=== PATIENT | female | born 1930 | race Caucasian/White ===

== ENCOUNTER 2017-02-27 14:27 | Observation (INO) | payer MEDICARE ==
[~2017-02-27] VITALS: Ht 162.6 cm; Wt 70.0 kg
[2017-02-27 14:28] VITALS: BP 113/53; PULSE 84; RESP 16; TEMP 98.2; O2SAT 97
[2017-02-27 14:53] VITALS: BP 86/54; PULSE 86; RESP 18; TEMP 98.6; O2SAT 98
[2017-02-27 15:00] VITALS: BP 86/50; PULSE 87; RESP 16; O2SAT 99
[2017-02-27 15:30] VITALS: BP 110/51; PULSE 68; RESP 16; O2SAT 99
[2017-02-27] MEDS ORDERED: SODIUM CHLORIDE 0.9% FLUSH 10 ML FLUSH IVF PRN (15:30)
[2017-02-27] MEDS ORDERED: SODIUM CHLOR 0.9% 1000 ML INJ 1,000 ML IV ONE ×2 (15:30)
[2017-02-27 15:34] VITALS: O2SAT 99
--- NOTE | 2017-02-27 15:46 | RADRPT ---
EXAM DATE/TIME: 02/27/2017 15:43 [facility] COMPARISON: No previous studies available for comparison. INDICATIONS : Weakness, possible stroke. MEDICAL HISTORY : None. SURGICAL HISTORY : None. ENCOUNTER: Initial ACUITY: 1 day PAIN SCORE: 0/10 LOCATION: Bilateral chest FINDINGS: A single view of the chest demonstrates the lungs to be symmetrically aerated without evidence of mas s, infiltrate or effusion. The cardiomediastinal contours are unremarkable. Osseous structures are intact. CONCLUSION: No acute disease. Ricky Moeller MD on February 27, 2017 at 15:44 Board Certified Radiologist. This report was verified electronically.
--- NOTE | 2017-02-27 16:02 | RADRPT ---
EXAM DATE/TIME: 02/27/2017 15:46 [facility] COMPARISON: No previous studies available for comparison. INDICATIONS : Patient with weakness, facial droop. RADIATION DOSE: 33.59 CTDIvol (mGy) MEDICAL HISTORY : Seizures. Hypertension. SURGICAL HISTORY : Hysterectomy. ENCOUNTER: Initial ACUITY: 1 day PAIN SCALE: 0/10 LOCATION: cranial TECHNIQUE: Multiple contiguous axial images were obtained of the head. Using automated exposure control and adj ustment of the mA and/or kV according to patient size, radiation dose was kept as low as reasonably a chievable to obtain optimal diagnostic quality images. DICOM format image data is available electro nically for review and comparison. FINDINGS: CEREBRUM: There is a low attenuation throughout the white matter. The ventricles are normal for age. No eviden ce of midline shift, mass lesion, hemorrhage or acute infarction. No extra-axial fluid collections a re seen. POSTERIOR FOSSA: The cerebellum and brainstem are intact. The 4th ventricle is midline. The cerebellopontine angle i s unremarkable. EXTRACRANIAL: The visualized portion of the orbits is intact. SKULL: The calvaria is intact. No evidence of skull fracture. CONCLUSION: No acute intracranial disease. Nonspecific white matter changes. Ricky Moeller MD on February 27, 2017 at 16:00 Board Certified Radiologist. This report was verified electronically.
[2017-02-27 16:19] LABS: AUTOMATED NEUTROPHIL # 3.5 TH/MM3 (1.8-7.7); BASOPHIL # 0.1 TH/MM3 (0-0.2); EOSINOPHIL # 0.1 TH/MM3 (0-0.4); EOSINOPHIL % 1.6 % (0.0-4.0); HEMATOCRIT 41.2 % (35.0-46.0); HEMO FLAGS DIFF FINAL; LYMPH % 33.4 % (9.0-44.0); LYMPHOCYTE # 2.1 TH/MM3 (1.0-4.8); MEAN CELL VOLUME 88.5 FL (80.0-100.0); MEAN CORPUSCULAR HEMOGLOBIN 30.2 PG (27.0-34.0); MEAN CORPUSCULAR HGB CONC 34.2 % (32.0-36.0); MONO % 8.8 % (0.0-8.0); NEUT % 55.2 % (16.0-70.0); PLATELET COUNT 204 TH/MM3 (150-450); RED BLOOD COUNT 4.65 MIL/MM3 (4.00-5.30); RED CELL DISTRIBUTION WIDTH 12.9 % (11.6-17.2); WHITE BLOOD COUNT 6.4 TH/MM3 (4.0-11.0)
[2017-02-27 16:26] LABS: INTERNATIONAL NORMALIZED RATIO 1.1 RATIO; PROTHROMBIN TIME - PATIENT 11.3 SEC (9.8-11.6)
[2017-02-27 16:46] LABS: ANION GAP 8 MEQ/L (5-15); BICARBONATE 27.1 MEQ/L (21.0-32.0); BLOOD UREA NITROGEN 23 MG/DL (7-18); CHLORIDE 105 MEQ/L (98-107); GLOMERULAR FILTRATION RATE 31 ML/MIN (>89); POTASSIUM 3.8 MEQ/L (3.5-5.1); SODIUM (NA) 140 MEQ/L (136-145)
[2017-02-27 16:49] LABS: CREATINE KINASE 89 U/L (26-192)
--- NOTE | 2017-02-27 17:22 | PD ---
HPI Chief Complaint: Neuro Symptoms/ Deficits Time Seen by Provider: 14:42 Travel History International Travel<30 days: No Contact w/Intl Traveler<30days: No Traveled to known affect area: No History of Present Illness HPI 86-year-old female came to the emergency room brought by her daughter with history of syncopal episode along with possible seizure. Patient was in the back of her daughter's car and daughter was driving. She heard the patient grunting and when she turned back she saw that she was unresponsive with her dentures out of her mouth and drooling. Patient has history of seizure disorder apparently and daughter thinks that she may have had a seizure. She brought her in to be evaluated. Currently patient is awake and answering questions appropriately. Says she feels okay. However her vital signs were significant of hypotension. No history of chest pain, headache or any other pains. [facility] Past Medical History Narrative Medical List of her past medical, surgical, social and family history is reviewed from the nursing note. Cardiovascular Problems: Yes (HTN) High Cholesterol: Yes Hypertension: Yes Seizures: Yes Tetanus Vaccination: Unknown Influenza Vaccination: Yes ?: Not Past Surgical History Hysterectomy: Yes Social History Alcohol Use: Yes (BEER OCCASIONALLY ) Tobacco Use: No Substance Use: No Allergies-Medications (Allergen,Severity, Reaction): Coded Allergies: No Known Allergies (Unverified , 02/27/17) Comments No known drug allergies Reported Meds & Prescriptions Reported Meds & Active Scripts Active Narrative Medication Awaiting for the nurse to update the vital signs Review of Systems Except as stated in HPI: all other systems reviewed are Neg Neurologic: Positive: Syncope, Seizures Physical Exam Narrative GENERAL: Awake, alert, elderly, mild distress SKIN: Focused skin assessment warm/dry. HEAD: Atraumatic. Normocephalic. EYES: Pupils equal and round. No scleral icterus. No injection or drainage. ENT: No nasal bleeding or discharge. Mucous membranes pink and moist. NECK: Trachea midline. No JVD. CARDIOVASCULAR: Regular rate and rhythm. No murmur appreciated. RESPIRATORY: No accessory muscle use. Clear to auscultation. Breath sounds equal bilaterally. GASTROINTESTINAL: Abdomen soft, non-tender, nondistended. Hepatic and splenic margins not palpable. MUSCULOSKELETAL: No obvious deformities. No clubbing. No cyanosis. No edema. NEUROLOGICAL: Awake and alert. No obvious cranial nerve deficits. Motor grossly within normal limits. Normal speech. NIH stroke score of 0 PSYCHIATRIC: Appropriate mood and affect; insight and judgment normal. Data Data Last Documented VS Vital Signs Date Time Temp Pulse Resp B/P (MAP) Pulse Ox O2 Delivery O2 Flow Rate FiO2 02/27/17 15:34 99 Room Air 02/27/17 15:30 68 16 02/27/17 14:53 98.6 Orders Orders Electrocardiogram (02/27/17:29) Prothrombin Time / Inr (Pt) (02/27/17 15:29) Complete Blood Count With Diff (02/27/17:29) Basic Metabolic Panel (Bmp) (02/27/17 15:29) Creatine Kinase (Cpk) (02/27/17:29) Troponin I (02/27/17:) Ct Brain W/O Iv Contrast(Rout) (02/27/17 15:29) Chest, Single Ap (02/27/17 15:29) Ecg Monitoring (02/27/17:29) Iv Access Insert/Monitor (02/27/17:29) Oximetry (02/27/17 15:29) Sodium Chloride 0.9% Flush (Ns Flush) (02/27/17 15:30) Sodium Chlor 0.9% 1000 Ml Inj (Ns 1000 M (02/27/17 15:30) Sodium Chlor 0.9% 1000 Ml Inj (Ns 1000 M (02/27/17 15:30) Admit Order (Ed Use Only) (02/27/17 17:23) Labs Laboratory Tests Test 02/27/17 15:45 White Blood Count 6.4 TH/MM3 Red Blood Count 4.65 MIL/MM3 Hemoglobin 14.1 GM/DL Hematocrit 41.2 % Mean Corpuscular Volume 88.5 FL Mean Corpuscular Hemoglobin 30.2 PG Mean Corpuscular Hemoglobin Concent 34.2 % Red Cell Distribution Width 12.9 % Platelet Count 204 TH/MM3 Mean Platelet Volume 7.8 FL Neutrophils (%) (Auto) 55.2 % Lymphocytes (%) (Auto) 33.4 % Monocytes (%) (Auto) 8.8 % Eosinophils (%) (Auto) 1.6 % Basophils (%) (Auto) 1.0 % Neutrophils # (Auto) 3.5 TH/MM3 Lymphocytes # (Auto) 2.1 TH/MM3 Monocytes # (Auto) 0.6 TH/MM3 Eosinophils # (Auto) 0.1 TH/MM3 Basophils # (Auto) 0.1 TH/MM3 CBC Comment DIFF FINAL Differential Comment Prothrombin Time 11.3 SEC Prothromb Time International Ratio 1.1 RATIO Blood Urea Nitrogen 23 MG/DL Creatinine 1.60 MG/DL Random Glucose 167 MG/DL Calcium Level 8.7 MG/DL Sodium Level 140 MEQ/L Potassium Level 3.8 MEQ/L Chloride Level 105 MEQ/L Carbon Dioxide Level 27.1 MEQ/L Anion Gap 8 MEQ/L Estimat Glomerular Filtration Rate 31 ML/MIN Total Creatine Kinase 89 U/L Troponin I LESS THAN 0.02 NG/ML MDM Medical Decision Making Medical Screen Exam Complete: Yes Emergency Medical Condition: Yes Medical Record Reviewed: Yes Interpretation(s) Twelve-lead EKG was reviewed by me. Normal sinus rhythm, normal axis, nonspecific ST-T wave changes. Heart rate of 68 bpm. Differential Diagnosis Arrhythmia, seizure disorder, intracranial bleed, tumor Narrative Course 5:21 PM blood test results are back and patient is slightly dehydrated. She was given 2 L of IV fluid bolus initially when she came in. Currently her blood pressure has stabilized. Rest of the blood test results are within normal limits. Head CT is negative. I would like to admit this patient at least for observation and the family has been notified. Patient and her daughter is okay with this plan. Procedures EKG Prior to Arrival: No Diagnosis Primary Impression: Syncope Qualified Codes: R55 - Syncope and collapse Additional Impressions: Dehydration Hypotension Qualified Codes: I95.9 - Hypotension, unspecified Admitting Information Admitting Physician Requests: Observation Scripts Walker Rolling/GetGo (Walker Rolling/GetGo) 1 Mis Mis EA .ROUTE DIRECTED for instability/seizure, #1 Prov: Naun Pryor MD 03/01/17 Aspirin (Aspirin) 81 Mg Chew 81 MG CHEW DAILY for TIA prophylaxis, #30 TAB 0 Refills Prov: Naun Pryor MD 03/01/17 Levetiracetam (Keppra) 250 Mg Tab 750 MG PO Q12HR for seizure, #60 TAB Prov: Naun Pryor MD 03/01/17 Angel Saul MD Feb 27, 2017 17:22
[2017-02-27] MEDS ORDERED: SODIUM CHLORIDE 0.9% FLUSH 10 ML FLUSH IV FLUSH PRN ×2 (17:30→19:45)
[2017-02-27] MEDS ORDERED: DEXTROSE 50% IN WATER 50 ML VIAL(D50) IV PUSH PRN (19:45)
[2017-02-27] MEDS ORDERED: GLUCAGON 1 MG/ML VIAL OTHER PRN (19:45)
[2017-02-27] MEDS ORDERED: ASPIRIN 81 MG CHEW TAB CHEW ONE (19:45)
--- NOTE | 2017-02-27 19:58 | HHI.HP ---
[facility] Service [facility] Primary Care Physician Glenda Alfredo, formerly [facility] Admission Diagnosis syncope, hypotension Diagnoses: Travel History International Travel<30 Days: No Contact w/Intl Traveler <30 Da: No Traveled to Known Affected Are: No History of Present Illness 86-year-old female with a past medical history for seizure disorder currently on Keppra, hypertension and dementia presents to the emergency department after an episode of TIA versus seizure. The patient was riding in the car with her daughter who witnessed her have left-sided facial droop and extension of her left leg while being nonresponsive. The episode itself was short-lived and the patient's daughter reports the facial droop resolved after approximately 15 minutes. The patient has no memory of the event. Per the patient's daughter, this was different than her previous witnessed seizure. Head CT showed no acute intracranial disease. The patient's symptoms have all completely resolved at this time. Review of Systems Denies fever or chills Denies blurry vision, otorrhea, rhinorrhea Denies sore throat and cough No chest pain, palpitations, shortness of breath No abdominal pain Denies constipation/diarrhea/nausea/vomiting Denies muscle pain/weakness No rashes Past Family Social History Past Medical History Seizure disorder Hypertension Dementia Past Surgical History Cholecystectomy Hysterectomy Varicose vein surgery Reported Medications Unknown at this time Allergies: Coded Allergies: No Known Allergies (Unverified , 02/27/17) Family History Mother with CAD Social History Denies alcohol, tobacco and illicit drugs Physical Exam Vital Signs Vital Signs Date Time Temp Pulse Resp B/P (MAP) Pulse Ox O2 Delivery O2 Flow Rate FiO2 02/27/17 15:34 99 Room Air 02/27/17 15:30 68 16 110/51 (70) 99 Room Air 02/27/17 15:00 87 16 86/50 (62) 99 Room Air 02/27/17 14:59 86 18 98 Room Air 02/27/17 14:53 98.6 86 18 86/54 (65) 98 02/27/17 14:28 98.2 84 16 113/53 (73) 97 Physical Exam GENERAL: female sitting up in bed SKIN: No rashes, ecchymoses or lesions. Cool and dry. HEAD: Atraumatic. Normocephalic. No temporal or scalp tenderness. EYES: Pupils equal round and reactive. Extraocular motions intact. No scleral icterus. No injection or drainage. ENT: Nose without bleeding, purulent drainage or septal hematoma. Throat without erythema, tonsillar hypertrophy or exudate. Uvula midline. Airway patent. NECK: Trachea midline. No JVD or lymphadenopathy. Supple, nontender, no meningeal signs. CARDIOVASCULAR: Regular rate and rhythm without murmurs, gallops, or rubs. RESPIRATORY: Clear to auscultation. Breath sounds equal bilaterally. No wheezes , rales, or rhonchi. GASTROINTESTINAL: Abdomen soft, non-tender, nondistended. No hepato-splenomegaly , or palpable masses. No guarding. MUSCULOSKELETAL: Extremities without clubbing, cyanosis, or edema. No joint tenderness, effusion, or edema noted. No calf tenderness. Negative Homans sign bilaterally. NEUROLOGICAL: Awake and alert. Cranial nerves II through XII intact. Motor and sensory within normal limits. Five out of 5 muscle strength in all muscle groups. Normal speech. Laboratory Laboratory Tests Test 02/27/17 15:45 White Blood Count 6.4 Red Blood Count 4.65 Hemoglobin 14.1 Hematocrit 41.2 Mean Corpuscular Volume 88.5 Mean Corpuscular Hemoglobin 30.2 Mean Corpuscular Hemoglobin Concent 34.2 Red Cell Distribution Width 12.9 Platelet Count 204 Mean Platelet Volume 7.8 Neutrophils (%) (Auto) 55.2 Lymphocytes (%) (Auto) 33.4 Monocytes (%) (Auto) 8.8 Eosinophils (%) (Auto) 1.6 Basophils (%) (Auto) 1.0 Neutrophils # (Auto) 3.5 Lymphocytes # (Auto) 2.1 Monocytes # (Auto) 0.6 Eosinophils # (Auto) 0.1 Basophils # (Auto) 0.1 CBC Comment DIFF FINAL Differential Comment Prothrombin Time 11.3 Prothromb Time International Ratio 1.1 Blood Urea Nitrogen 23 Creatinine 1.60 Random Glucose 167 Calcium Level 8.7 Sodium Level 140 Potassium Level 3.8 Chloride Level 105 Carbon Dioxide Level 27.1 Anion Gap 8 Estimat Glomerular Filtration Rate 31 Total Creatine Kinase 89 Troponin I LESS THAN 0.02 Result Diagram: 02/27/17 1545 02/27/17 1545 Caprini VTE Risk Assessment Caprini VTE Risk Assessment: Mod/High Risk (score >= 2) Caprini Risk Assessment Model Point Value = 1 Point Value = 2 Point Value = 3 Point Value = 5 Age 41-60 Minor surgery BMI > 25 kg/m2 Swollen legs Varicose veins or History of unexplained or recurrent spontaneous Oral contraceptives or hormone replacement Sepsis (< 1 month) Serious lung disease, including pneumonia (< 1 month) Abnormal pulmonary function Acute myocardial infarction Congestive heart failure (< 1 month) History of inflammatory bowel disease Medical patient at bed rest Age 61-74 Arthroscopic surgery Major open surgery (> 45 min) Laparoscopic surgery (> 45 min) Malignancy Confined to bed (> 72 hours) Immobilizing plaster cast Central venous access Age >= 75 History of VTE Family history of VTE Factor V Leiden Prothrombin [id number] Lupus anticoagulant Anticardiolipin antibodies Elevated serum homocysteine Heparin-induced thrombocytopenia Other congenital or acquired thrombophilia Stroke (< 1 month) Elective arthroplasty Hip, pelvis, or leg fracture Acute spinal cord injury (< 1 month) Prophylaxis Regimen Total Risk Factor Score Risk Level Prophylaxis Regimen 0-1 Low Early ambulation 2 Moderate Order ONE of the following: *Sequential Compression Device (SCD) *Heparin 5000 units SQ BID 3-4 Higher Order ONE of the following medications: *Heparin 5000 units SQ TID *Enoxaparin/Lovenox 40 mg SQ daily (WT < 150 kg, CrCl > 30 mL/min) *Enoxaparin/Lovenox 30 mg SQ daily (WT < 150 kg, CrCl > 10-29 mL/min) *Enoxaparin/Lovenox 30 mg SQ BID (WT < 150 kg, CrCl > 30 mL/min) AND/OR *Sequential Compression Device (SCD) 5 or more Highest Order ONE of the following medications: *Heparin 5000 units SQ TID (Preferred with Epidurals) *Enoxaparin/Lovenox 40 mg SQ daily (WT < 150 kg, CrCl > 30 mL/min) *Enoxaparin/Lovenox 30 mg SQ daily (WT < 150 kg, CrCl > 10-29 mL/min) *Enoxaparin/Lovenox 30 mg SQ BID (WT < 150 kg, CrCl > 30 mL/min) AND *Sequential Compression Device (SCD) Assessment and Plan Assessment and Plan Assessment/plan: 1. TIA versus seizure Patient with known seizure disorder, currently on Keppra. Keppra level pending EEG pending TIA workup pending including MRI/MRA brain, carotid ultrasound, echo Neurology consulted, appreciate recommendations 2. ROGER Patient's creatinine 1.60, baseline unknown IV fluid hydration Monitor renal function Avoid nephrotoxic agents 3. Seizure disorder/hypertension/dementia Patient's daughter will bring in a list of her home medications Medications reconciled, continue home meds FEN Heart healthy diet after bedside swallow evaluation NS 70 cc/hour Electrolytes: Monitor and replete when necessary Heparin Adriane Paulino MD Feb 27, 2017 19:58
[2017-02-27] MEDS: INSULIN ASPART SUPPLEMENTAL SCALE SQ SCH (21:00)
[2017-02-27] MEDS: SODIUM CHLORIDE 0.9% FLUSH 10 ML FLUSH IV FLUSH SCH (22:04)
[2017-02-27] MEDS: SODIUM CHLOR 0.9% 1000 ML INJ 1,000 ML IV SCH (22:04)
[2017-02-27] MEDS: HEPARIN SODIUM - SQ 10,000 UNITS/ML VIAL SQ SCH (22:05)
[2017-02-28] VITALS (10 sets, daily range): BP systolic 130–183; BP diastolic 68–84; PULSE 51–79; RESP 18–24; TEMP 96.6–98.7; O2SAT 93–97
[2017-02-28 05:34] LABS: BASOPHIL # 0.1 TH/MM3 (0-0.2); BASOPHIL % 0.8 % (0.0-2.0); EOSINOPHIL # 0.2 TH/MM3 (0-0.4); EOSINOPHIL % 2.2 % (0.0-4.0); HEMATOCRIT 39.1 % (35.0-46.0); HEMO FLAGS DIFF FINAL; LYMPH % 48.3 % (9.0-44.0); LYMPHOCYTE # 3.5 TH/MM3 (1.0-4.8); MEAN CELL VOLUME 88.8 FL (80.0-100.0); MEAN CORPUSCULAR HEMOGLOBIN 30.3 PG (27.0-34.0); MEAN CORPUSCULAR HGB CONC 34.2 % (32.0-36.0); MONO % 7.4 % (0.0-8.0); NEUT % 41.3 % (16.0-70.0); PLATELET COUNT 181 TH/MM3 (150-450); RED BLOOD COUNT 4.41 MIL/MM3 (4.00-5.30); RED CELL DISTRIBUTION WIDTH 13.3 % (11.6-17.2); WHITE BLOOD COUNT 7.2 TH/MM3 (4.0-11.0)
[2017-02-28 06:05] LABS: BICARBONATE 26.5 MEQ/L (21.0-32.0); POTASSIUM 3.6 MEQ/L (3.5-5.1)
[2017-02-28 06:09] LABS: HDL CHOLESTEROL 70.8 MG/DL (40.0-60.0)
[2017-02-28] MEDS: INSULIN ASPART SUPPLEMENTAL SCALE SQ SCH ×4 (08:00→21:00)
[2017-02-28] MEDS: SODIUM CHLORIDE 0.9% FLUSH 10 ML FLUSH IV FLUSH SCH ×2 (10:41→21:50)
[2017-02-28] MEDS: SODIUM CHLOR 0.9% 1000 ML INJ 1,000 ML IV SCH (10:41)
[2017-02-28] MEDS: HEPARIN SODIUM - SQ 10,000 UNITS/ML VIAL SQ SCH ×2 (10:42→21:50)
--- NOTE | 2017-02-28 10:48 | RADRPT ---
EXAM DATE/TIME: 02/28/2017 09:20 [facility] COMPARISON: No previous studies available for comparison. INDICATIONS : Patient with weakness, facial droop. MEDICAL HISTORY : Seizures. Hypertension. SURGICAL HISTORY : Cholecystectomy. Hysterectomy. ENCOUNTER: Subsequent ACUITY: 2 day PAIN SCORE: 0/10 LOCATION: cranial TECHNIQUE: Multiplanar, multisequence MRI of the brain was performed without contrast. FINDINGS: CEREBRUM: A small T2 hypointense nodule in the fat in the right temporal lobe in the paraventricular region. Th ere is significant magnetic susceptibility associated with the nodule. There is no significant mass e ffect or surrounding edema. No other focal abnormalities are noted. Mild generalized volume loss with enlargement of the CSF space is noted. WHITE MATTER: Deep white matter and subcortical white matter signal abnormalities are noted. Small hyperintensities are identified bilaterally in the subcortical white matter and insular. There is also deep white mat ter and periventricular hyperintensities in frontal lobes. POSTERIOR FOSSA: The cerebellum and brainstem are intact. The 4th ventricle is midline. The cerebellopontine angle is unremarkable. The cerebellar tonsils are normal in position. DIFFUSION IMAGING: No focal areas of restricted diffusion are seen. No evidence of acute infarction. EXTRACRANIAL: The visualized portions of the orbits and paranasal sinuses are unremarkable. CONCLUSION: 1. 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 2. 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 3. No evidence of suspicious mass, acute infarct, hemorrhage or edema. Edwin Fernandez MD on February 28, 2017 at 10:34 Board Certified Radiologist. This report was verified electronically.
--- NOTE | 2017-02-28 10:50 | RADRPT ---
EXAM DATE/TIME: 02/28/2017 09:20 [facility] COMPARISON: No previous studies available for comparison. INDICATIONS : Patient with weakness, facial droop. MEDICAL HISTORY : Seizures. Hypertension. SURGICAL HISTORY : Cholecystectomy. Hysterectomy. ENCOUNTER: Subsequent ACUITY: 2 day PAIN SCORE: 0/10 LOCATION: cranial Please note a normal MRA of the brain does not entirely exclude the possibility of a small aneurysm, nor the possibility of distal intracranial vessel disease. TECHNIQUE: 3D time of flight MRA was performed. Source images, multiplanar STS MIP, and 3D volume MIP reconstru ctions were reviewed. FINDINGS: There is excellent visualization of the major intracranial arteries out to the second-order branch ve ssels. Dominant right vertebral artery noted. There is no evidence for aneurysm, vessel truncation or stenosis, and no evidence for vascular malfo rmation. CONCLUSION: 1. 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 2. No evidence of significant stenosis, luminal irregularity, aneurysm or vascular displacement. dEwin Fernandez MD on February 28, 2017 at 10:46 Board Certified Radiologist. This report was verified electronically.
--- NOTE | 2017-02-28 10:53 | RADRPT ---
EXAM DATE/TIME: 02/28/2017 09:47 [facility] COMPARISON: No previous studies available for comparison. INDICATIONS : Cerebrovascular accident. MEDICAL HISTORY : Hypercholesterolemia. Hypertension. Seizures. Dementia. SURGICAL HISTORY : Hysterectomy. Cholecystectomy. Varicose vein surgery. ENCOUNTER: Initial ACUITY: 1 day PAIN SCORE: 0/10 LOCATION: Bilateral neck PEAK SYSTOLIC VELOCITIES (cm/sec): ICA/CCA RATIO: Right: 1.0 Left: 1.1 ICA: Right: 89 Left: 81 CCA: Right: 89 Left: 74 ECA: Right: 77 Left: 70 VERTEBRAL: Right: 48 antegrade Left: 53 antegrade Elevated flow velocities and ICA/CCA ratios have been found to correlate with increased degrees of vessel stenosis, calculated as percentage of diameter relative to a normal segment of distal ICA/CCA FINDINGS: Mild calcified plaque is evident in both carotid bifurcations. RIGHT CAROTID: No significant stenosis is visualized. The waveforms are within normal limits. LEFT CAROTID: No significant stenosis is visualized. The waveforms are within normal limits. VERTEBRAL ARTERIES: Antegrade flow is seen in both vertebral arteries. MISCELLANEOUS: A complex cystic mass is identified in the lower pole the left thyroid lobe. It measures 3.2 x 2.8 x 3.4 cm in size. CONCLUSION: 1. Mild bilateral carotid plaque without evidence of hemodynamically significant stenosis. 2. 3.4 cm complex cystic mass left thyroid lobe. Edwin Fernandez MD on February 28, 2017 at 10:49 Board Certified Radiologist. This report was verified electronically.
--- NOTE | 2017-02-28 11:37 | EKG ---
Date Performed: 02/27/2017 Time Performed: 16:19:30 PTAGE: 86 years EKG: Sinus rhythm NORMAL ECG NO PREVIOUS TRACING DOCTOR: Yaron Erazo Interpretating Date/Time 02/28/2017 11:36:05
[2017-02-28] MEDS ORDERED: DONE10TA7 PO (12:11)
[2017-02-28] MEDS ORDERED: LISI10TA PO (12:11)
[2017-02-28] MEDS ORDERED: LEVE500 PO (12:11)
[2017-02-28] MEDS ORDERED: ATOR10TA15 PO (12:11)
[2017-02-28 13:46] LABS: HEMOGLOBIN A1a 1.1 %; HEMOGLOBIN A1b 1.8 %; HEMOGLOBIN P3 4.1 %
[2017-02-28] MEDS: levETIRAcetam 250 MG TAB PO SCH ×2 (16:06→21:50)
--- NOTE | 2017-02-28 16:07 | HHI.PR ---
Subjective Remarks Patient stated she feels well today No dizziness lightheaded blurry vision, no numbness or weakness Her blood pressure fluctuating, creatinine improved from 1.6-1.2, I consulted Dr. Hernandez on discussed with her she will graciously see the patient Objective Vitals Vital Signs Date Time Temp Pulse Resp B/P (MAP) Pulse Ox O2 Delivery O2 Flow Rate FiO2 02/28/17 12:36 64 157/72 (100) 95 02/28/17 08:27 96.6 58 24 183/84 (117) 97 02/28/17 04:05 62 02/28/17 00:09 62 02/28/17 00:01 98.7 64 18 130/68 (88) 95 02/28/17 00:00 57 I/O 02/27/17 02/27/17 02/27/17 02/28/17 02/28/17 02/28/17 06:59 14:59 22:59 06:59 14:59 22:59 Intake Total 2030 ml 590 ml Balance 2030 ml 590 ml Intake Oral 30 ml 240 ml IV Total 2000 ml 350 ml # Voids 1 Result Diagram: 02/28/172 02/28/172 Objective Remarks GENERAL: This is a well-nourished, well-developed patient, in no apparent distress. SKIN: No rashes, warm and dry HEAD: Atraumatic. Normocephalic. EYES: Pupils equal round and reactive. Extraocular motions intact. No scleral icterus. ENT: Nose without bleeding, or drainage, Airway patent. NECK: Trachea midline. Supple CARDIOVASCULAR: Regular rate and rhythm without murmurs, gallops, or rubs. RESPIRATORY: Fair air entry bilaterally. No wheezes, rales, or rhonchi. GASTROINTESTINAL: Abdomen soft, non-tender, nondistended. Positive bowel sounds MUSCULOSKELETAL: Extremities without clubbing, cyanosis, or edema. Pedal pulses appreciated NEUROLOGICAL: Awake and alert oriented 3, cranial nerves II through XII intact , sensory and motor strength within normal limits. Moves all extremity. Normal speech.no focal neurological deficit A/P Assessment and Plan 1. Neuro symptoms with syncope rule out TIA versus seizure Patient with known seizure disorder, currently on Keppra. Keppra level pending EEG pending MRI/MRA brain, carotid ultrasound, reviewed by me as above MRI positive for ischemic changes, echo pending Neurology consulted, discussed with Dr. Hernandez 2. ROGER with possible underlying CKD Peter improved 1.6-1.2 Continue IV fluid hydration Monitor renal function Avoid nephrotoxic agents 3. Seizure disorder/hypertension/dementia Home medical reconciliation reviewed, neurology may increase Naun Nuñez MD Feb 28, 2017 16:07
--- NOTE | 2017-02-28 17:05 | MB ---
cc: YARED MORIN M.D., DALIA M.D. DATE OF CONSULTATION: 02/28/2017 DATE OF : 1930, 86 REASON FOR CONSULTATION Seizure. HISTORY OF PRESENT ILLNESS: This is an 86-year-old lady, with a history of epilepsy, on Keppra 500 milligrams twice a day, dementia on donepezil, and hypertension. Her daughter works at the [employer]. She was a passenger in the car when her daughter noted that she was making some funny noises, possible facial droop on the left side, not responsive. They were very close so they brought her in directly. Her episode lasted a couple of minutes then resolved with a little confusion, but she has baseline dementia but not significant post ictal event. The patient seems to be back to baseline now. She was diagnosed with epilepsy about a couple of years ago or so. PAST MEDICAL HISTORY: As stated. ALLERGIES: None reported. FAMILY HISTORY: Noncontributory. SOCIAL HISTORY: She lives with her daughter. Does not smoke, drink or use drugs. Sleeps well. Appetite is good. PHYSICAL EXAMINATION: Vitals: Temperature is 96.6, pulse 64, respiratory rate 24, blood pressure 157/72, sating at 95%. NECK: Her neck is supple. No bruits. Heart: Regular. She is awake and alert. She knows it is February 28, 2017. She knows it is Monday. She can tell me the state, the [facility], the governor's name. Speech is fluent. Pupils reactive. Face symmetrical. Tongue midline. Motor stearns, there is no drift or leg lag. Cerebellar testing is normal. DTRs are 1 to 2+. Toes downgoing. Gait is withheld but she has been ambulating around the room. LABORATORY DATA: Reviewed. Her A1c is 5.7. GFR is 43, calcium 8.4. Cholesterol 122, triglyceride is 51. LDL 41, HDL 70.8. Toxicology screen, Keppra level is pending. 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 Mild to moderate white matter disease. MRA [place] was unremarkable. Ultrasound, no significant stenosis. Her echo was just completed. She did have an EEG, report is pending as well. IMPRESSION: Possible seizure, versus possible TIA, very difficult at this point to tell what happened but her daughter believes it was one of her seizures. Recommend getting the EEG report. If no contraindication, I would put her on a baby aspirin daily. Also I have increased her Keppra from 500 to 750 milligrams twice a day. Maintain seizure precautions. Her echo report should be back in a few hours. Keppra level is pending, however, there is no toxic or significant therapeutic level that will be followed. If stable, workup is unremarkable from my perspective she can be discharged home on higher dose Keppra and followed with her primary care physician and with her neurologist in [place]. MD MARGY Miranda/JASIEL /2:50 PM /4:27 PM
--- NOTE | 2017-02-28 17:34 | ECHRPT ---
Indication: CVA/TIA CONCLUSIONS Normal left ventricular size. Wall thickness is normal. Normal LV systolic function, EF 60-65%. The left atrial size is moderately dilated. Mild thickening of the mitral valve leaflets. [id number] mitral valve regurgitation. Aortic valve sclerosis is present. There is mild tricuspid valve regurgitation. The estimated pulmonary arterial pressure is 38 mmHg. Mild pulmonary valve regurgitation. BP: 130 / 68 HR: 64 Rhythm: Sinus MEASUREMENTS (Male / Female) Normal Values Technical Quality:Fair 2D ECHO LV Diastolic Diameter PLAX 4.8 cm 4.2 - 5.9 / 3.9 - 5.3 cm LV Systolic Diameter PLAX 3.3 cm IVS Diastolic Thickness 0.9 cm 0.6 - 1.0 / 0.6 - 0.9 cm LVPW Diastolic Thickness 0.9 cm 0.6 - 1.0 / 0.6 - 0.9 cm LV Relative Wall Thickness 0.4 RV Internal Dim ED PLAX 2.5 cm LVOT Diameter 1.8 cm Aortic Root Diameter 3.1 cm LA Systolic Diameter LX 4.4 cm 3.0 - 4.0 / 2.7 - 3.8 cm M-MODE AV Cusp Separation MM 1.8 cm DOPPLER AV Peak Velocity 171.0 cm/s AV Peak Gradient 11.7 mmHg AV Mean Gradient 6.0 mmHg AV Velocity Time Integral 35.2 cm LVOT Peak Velocity 123.0 cm/s LVOT Peak Gradient 6.1 mmHg LVOT Velocity Time Integral 27.8 cm AV Area Cont Eq vti 2.0 cm AV Area Cont Eq pk 1.8 cm Mitral E Point Velocity 105.0 cm/s Mitral A Point Velocity 116.0 cm/s Mitral E to A Ratio 0.9 LV E' Lateral Velocity 7.6 cm/s Mitral E to LV E' Lateral Ratio 13.8 LV E' Septal Velocity 7.1 cm/s Mitral E to LV E' Septal Ratio 14.7 TR Peak Velocity 267.0 cm/s TR Peak Gradient 28.5 mmHg Right Atrial Pressure 10.0 mmHg Pulmonary Artery Systolic Pressu 38.5 mmHg Right Ventricular Systolic Press 38.5 mmHg PV Peak Velocity 53.4 cm/s PV Peak Gradient 1.1 mmHg FINDINGS LEFT VENTRICLE Normal left ventricular size. Wall thickness is normal. The left ventricular systolic function is normal with an estimated ejection fraction in the range of 60-65%. RIGHT VENTRICLE Normal right ventricular size and systolic function. LEFT ATRIUM The left atrial size is moderately dilated. RIGHT ATRIUM The right atrial size is normal. ATRIAL SEPTUM Normal atrial septal thickness without atrial level shunting by limited color doppler interrogation. AORTA The aortic root and proximal ascending aorta are normal in size on limited imaging. MITRAL VALVE Mild thickening of the mitral valve leaflets. Plka-iy-mbzlbhtc mitral valve regurgitation. AORTIC VALVE Aortic valve sclerosis is present. TRICUSPID VALVE There is mild tricuspid valve regurgitation. The estimated pulmonary arterial pressure is 38.5 mmHg. PULMONARY VALVE Mild pulmonary valve regurgitation. VESSELS The inferior vena cava is normal in size. PERICARDIUM No pericardial effusion. Li Kirk MD, FACC (Electronically Signed) Final Date:28 February 2017 17:33
--- NOTE | 2017-02-28 20:37 | MG ---
cc: EDEL ROBISON MD Lab No: Date: 02/28/17 Age: 86 Sex: F Race: REQUESTING PHYSICIAN Dr. Paulino An EEG was obtained on this 86-year-old patient described as awake and with a history of syncope and possible seizures. This EEG shows a lot of 10-12 per second alpha rhythms centrally and posteriorly. This alpha background is reactive. There is eye movement artifact and there is beta activity centrally and frontally. The patient enters sleep stage I and II. The tracing remains symmetrical and photic stimulation showed some mild driving response. Hyperventilation was not performed. INTERPRETATION Normal wake and light asleep EEG. Edel Robison MD [facility] /8:13 PM /8:29 PM
[2017-02-28] MEDS ORDERED: ATORVASTATIN 10 MG TAB PO SCH (21:00)
[2017-02-28] MEDS ORDERED: DONEPEZIL HCL 5 MG TAB PO SCH (21:00)
[2017-03-01 00:04] VITALS: BP 174/78; PULSE 68; RESP 18; TEMP 97.3; O2SAT 95
[2017-03-01 00:45] VITALS: PULSE 65
[2017-03-01 04:00] VITALS: BP 141/63; PULSE 64; PULSE 81; RESP 16; TEMP 96.7; O2SAT 94
[2017-03-01] MEDS: INSULIN ASPART SUPPLEMENTAL SCALE SQ SCH ×2 (08:00→12:00)
[2017-03-01 08:15] VITALS: BP 151/72; PULSE 64; RESP 16; TEMP 97.6; O2SAT 97
[2017-03-01] MEDS ORDERED: LISINOPRIL 10 MG TAB PO SCH (09:00)
[2017-03-01] MEDS ORDERED: NON-FORMULARY DRUG (Lisinopril-Hctz 1 TAB) PO SCH (09:00)
[2017-03-01] MEDS ORDERED: HYDROCHLOROTHIAZIDE 12.5 MG CAP PO SCH (09:00)
[2017-03-01] MEDS: levETIRAcetam 250 MG TAB PO SCH (10:20)
[2017-03-01] MEDS: SODIUM CHLORIDE 0.9% FLUSH 10 ML FLUSH IV FLUSH SCH (10:21)
[2017-03-01] MEDS: HEPARIN SODIUM - SQ 10,000 UNITS/ML VIAL SQ SCH (10:23)
[2017-03-01 12:15] VITALS: BP 130/74; PULSE 67; RESP 16; TEMP 97.2; O2SAT 95
[2017-03-01] MEDS ORDERED: LEVE250 PO (13:18)
[2017-03-01] MEDS ORDERED: ASPI-516 CHEW (13:23)
[2017-03-01] MEDS ORDERED: GETGO ROLLING W1 MI1 (13:26)
--- NOTE | 2017-03-01 13:27 | HHI.PR ---
Subjective Remarks Doing well no acute symptoms EEG in 2-D echo unremarkable or contradictory to her symptoms Keppra level XIV still within normal limit, she will be discharged on increased dose per neurology recommendation Objective Vitals Vital Signs Date Time Temp Pulse Resp B/P (MAP) Pulse Ox O2 Delivery O2 Flow Rate FiO2 03/01/17 12:15 97.2 67 16 130/74 (92) 95 03/01/17 08:15 97.6 64 16 151/72 (98) 97 03/01/17 04:00 96.7 81 16 141/63 (89) 94 03/01/17 04:00 64 03/01/17 00:45 65 03/01/17 00:04 97.3 68 18 174/78 (110) 95 02/28/17 21:19 96.9 72 18 175/84 (114) 94 02/28/17 20:30 79 02/28/17 16:09 97.0 76 18 159/71 (100) 93 I/O 02/28/17 02/28/17 02/28/17 03/01/17 03/01/17 03/01/17 06:59 14:59 22:59 06:59 14:59 22:59 Intake Total 590 ml Output Total 1 ml Balance 590 ml -1 ml Intake Oral 240 ml IV Total 350 ml Output Stool Total 1 ml # Voids 1 3 Result Diagram: 02/28/17 0402 02/28/17 0402 Imaging Last Impressions Head Magnetic Resonance Angiography 02/28/17 0000 Signed Impressions: Service Date/Time: Tuesday, February 28, 2017 09:20 - CONCLUSION: 1. 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 2. No evidence of significant stenosis, luminal irregularity, aneurysm or vascular displacement. Edwin Fernandez MD Carotid Artery Ultrasound 02/28/17 0000 Signed Impressions: Service Date/Time: Tuesday, February 28, 2017 09:47 - CONCLUSION: 1. Mild bilateral carotid plaque without evidence of hemodynamically significant stenosis. 2. 3.4 cm complex cystic mass left thyroid lobe. Edwin Fernandez MD Brain MRI 02/28/17 0000 Signed Impressions: Service Date/Time: Tuesday, February 28, 2017 09:20 - CONCLUSION: 1. 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 2. Mild to moderate cerebral white matter disease characteristic of chronic micropuncture ischemic changes. 3. No evidence of suspicious mass, acute infarct, hemorrhage or edema. Edwin Fernandez MD Head CT 02/27/17 1529 Signed Impressions: Service Date/Time: Monday, February 27, 2017 15:46 - CONCLUSION: No acute intracranial disease. Nonspecific white matter changes. Ricky Moeller MD Chest X-Ray 02/27/17 1529 Signed Impressions: Service Date/Time: Monday, February 27, 2017 15:43 - CONCLUSION: No acute disease. Ricky Moeller MD Objective Remarks GENERAL: This is a well-nourished, well-developed patient, in no apparent distress. SKIN: No rashes, warm and dry HEAD: Atraumatic. Normocephalic. EYES: Pupils equal round and reactive. Extraocular motions intact. No scleral icterus. ENT: Nose without bleeding, or drainage, Airway patent. NECK: Trachea midline. Supple CARDIOVASCULAR: Regular rate and rhythm without murmurs, gallops, or rubs. RESPIRATORY: Fair air entry bilaterally. No wheezes, rales, or rhonchi. GASTROINTESTINAL: Abdomen soft, non-tender, nondistended. Positive bowel sounds MUSCULOSKELETAL: Extremities without clubbing, cyanosis, or edema. Pedal pulses appreciated NEUROLOGICAL: Awake and alert oriented 3, cranial nerves II through XII intact , sensory and motor strength within normal limits. Moves all extremity. Normal speech.no focal neurological deficit A/P Assessment and Plan 1. Neuro symptoms with syncope rule out TIA versus seizure Patient with known seizure disorder, currently on Keppra. Keppra level pending MRI/MRA brain, carotid ultrasound, reviewed by me as above MRI positiveSmall cavernous angioma without acute hemorrhage echo reviewed no significant finding can explain her symptoms Neurology consulted, discussed with Dr. Hernandez, EEG unremarkable, Keppra level within normal limits, she will be discharged on increased dose of Keppra, and aspirin low dose 2. ROGER with possible underlying CKD Peter improved 1.6-1.2 Continue IV fluid hydration Monitor renal function Avoid nephrotoxic agents 3. Seizure disorder/hypertension/dementia Home medical reconciliation reviewed, neurology may increase Keppra Discharge Planning Discharge patient to home Condition on discharge: Improved Healthy heart Diet as tolerated Activity: Strict seizure precaution Rx written: Keppra 750 mg by mouth twice a day Follow-up with primary care physician and neurology within 1 week Naun Pryor MD Mar 01, 2017 13:26
== END 2017-03-01 18:30 | disposition home or self-care (01) ==
LOC: NEPE 14:27 → NEDA 17:23 → NEPGCP 20:58
PROVIDERS: ADMIT Hospitalist; ATTEND Hospitalist
DX: R55 Syncope and collapse (principal); I95.9 Hypotension, unspecified; E86.0 Dehydration; N17.9 Acute kidney failure, unspecified; R29.810 Facial weakness; I10 Essential (primary) hypertension; G40.909 Epilepsy, unspecified, not intractable, without status epilepticus; F03.90 Unspecified dementia, unspecified severity, without behavioral disturbance, psychotic disturbance, mood disturbance, and anxiety; E78.00 Pure hypercholesterolemia, unspecified; D18.09 Hemangioma of other sites
CPT/HCPCS: 70450; 70544; 70551; 71010; 76937; 80048; 80061; 80177; 82550; 82948; 83036; 84484; 85025; 85610; 93005; 93306; 93880; 95819; 96360; 96361; 96372; 97162; 97165; 99285; G0378; G8987; G8988; G8989; J1644; J7030